=== PATIENT | male | born 1980 | race Caucasian/White ===

== ENCOUNTER 2019-09-16 07:44 | Emergency (ER) | payer OTHER, SELFPAY ==
[2019-09-16 07:50] VITALS: BP 111/86; PULSE 70; RESP 15; TEMP 37; O2SAT 97; BMI 20.9
--- NOTE | 2019-09-16 08:20 | ED.EAR ---
HPI - Ear Problem General Chief complaint: Ear Stated complaint: ears plugged for a week Time Seen by Provider: 09/16/19 08:11 Source: patient Mode of arrival: Ambulatory History of Present Illness HPI Narrative: The patient is a 39-year-old male who states that last week he took a shower and since then it feels as though his ears are plugged. 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 They recommended that he use the brow ox earwax removal which he has used for 1 and half days. He thought it was getting better but then it was then. He states that he continues to hear himself and an alcohol. He denies any headache sore throat nasal congestion difficulty in swallowing. He has had decreased hearing that seems muffled. He has had no vertigo dizziness or ataxia. He denies any chest pain cough shortness of breath or dizziness. He has had no abdominal pain nausea or vomiting. He has had no injury to his ears or drainage from his ears. He denies any recent fever chills or sweats. Related Data Allergies Allergy/AdvReac Type Severity Reaction Status Date / Time Sulfa (Sulfonamide Allergy Unknown MOM Verified 09/16/19 07:49 Antibiotics) REPORTED [SULFA (SULFONAMIDE IT YEARS ANTIBIOTICS)] AGO Review of Systems Review of Systems Narrative: All review of systems were negative except for those mentioned in the history of present illness. Patient History Social History Smoking Status: Current every day smoker Smoking Status: Current every day smoker alcohol intake frequency: a few times a week Substance Use Type: does not use Exam Narrative Exam Narrative: PHYSICAL EXAM: CONSTITUTIONAL: Awake, Alert, Oriented, Coherent, Cooperative in NAD. Does not appear toxic or ill. HEAD: AT/NC EENT: PERRL, FROM of eyes, no discharge, no nystagmus No drainage from the ears, Tympanic membranes are non visualized secondary to the external auditory canals being occluded with brown cerumen. There is no tenderness to palpation over the tragus or pulling on the auricle. There is no pre or posterior auricular lymph nodes noted. No epistaxis or nasal drainage Oral mucosa is moist and pink, posterior pharynx is without erythema or exudate. Tobacco staining on the tongue. NECK: Supple, no obvious JVD, Trachea is midline without stridor, no palpable LN or masses. SPINE: No gross deformity, no palpable tenderness of the cervical, thoracic, lumbar or sacral spine. No CVA tenderness. THORAX: No deformity, retractions, chest wall tenderness, subcutaneous air or crepitice. LUNGS: Clear with symmetrical breath sounds without respiratory distress HEART: Normal heart tones, regular rhythm and rate without murmur. ABDOMEN: Soft, non-tender, normal bowel sounds without guarding, rebound, rigidity or palpable mass or organomegaly. NEURO: Awake, alert, oriented, conversive, cranial nerves II-XII are symmetrical and normal, moves all 4 extremities and is ambulatory Initial Vital Signs Initial Vital Signs: Vital Signs Temperature 98.6 F 09/16/19 07:50 Pulse Rate 70 09/16/19 07:50 Respiratory Rate 15 09/16/19 07:50 Blood Pressure 111/86 09/16/19 07:50 Pulse Oximetry 97 09/16/19 07:50 Course Course Course Narrative: The nurse was asked to irrigate both ears to remove wax with a combination of warm water and hydrogen peroxide. This irrigation was successful and a large amount of cerumen was removed. Re-examination of patient's external auditory canals revealed that the wax had been removed and that there was no injury or excessive irritation and redness. The tympanic membranes were intact without any perforation and pearly white in color. The patient tolerated the procedure well was able to hear better and was feeling much better. He was discharged home to be seen in follow-up as necessary by his primary care physician and ENT. Orders Ordered: Discontinued Medications Hydrogen Peroxide/Benzyl Alcohol (Hydrogen Peroxide) 60 ml TOP NOW ONE Stop: 09/16/19 08:21 Last Admin: 09/16/19 08:49 Dose: 60 ml Documented by: SCANAPO Vital Signs Vital signs: Vital Signs - 8 hr 09/16/19 07:50 Temperature 98.6 F Pulse Rate 70 Respiratory Rate 15 Blood Pressure 111/86 Pulse Oximetry 97 Discharge Plan Departure Patient Disposition: Home Clinical Impression: Impacted cerumen Qualifiers: Laterality: bilateral Qualified Code(s): H61.23 - Impacted cerumen, bilateral Discharge Date/Time: 09/16/19 09:23 Instructions: How to Instill Ear Drops, Cerumen Impaction Activity Restrictions/Additional Instructions: Your tympanic membranes are intact bilaterally and the external auditory canal is clear of wax. Do not continue to put the ED brought earwax removal drops senior year. Follow-up with your primary care physician and or ENT doctor. You can return to the emergency department at any time if any other problems develop.
[2019-09-16] MEDS: HYDROGEN PEROXIDE 473 ML SOLUTION 60 ML TOP (08:49)
== END 2019-09-16 09:23 | disposition home or self-care (01) ==
PROVIDERS: Emergency Provider Emergency Medicine
DX: H61.23 Impacted cerumen, bilateral (principal)
CPT/HCPCS: 69209; 99283; 99284

== ENCOUNTER 2019-11-11 08:05 | Emergency (ER) | payer OTHER, SELFPAY ==
[2019-11-11 08:17] VITALS: BP 146/86; PULSE 78; RESP 18; TEMP 36.7; O2SAT 99
--- NOTE | 2019-11-11 08:37 | PC.NURSE ---
Addendum entered by Triny Lara R.N. 11/11/19 08:38: Addendum entered by Triny Lara R.N. 11/11/19 08:37: Original Note: Patient refused IV start and Lab draw
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
[2019-11-11] MEDS: MAG HYDROX/ALUMINUM/SIMETH SUS 20 ML, LIDOCAINE VISCOUS 2% 15 ML PO (09:05)
[2019-11-11 09:21] VITALS: PULSE 49; RESP 16; O2SAT 96
[2019-11-11 09:38] VITALS: BP 113/64
[2019-11-11 09:39] VITALS: RESP 12; O2SAT 94
[2019-11-11 09:43] VITALS: PULSE 56; RESP 16; O2SAT 94
== END 2019-11-11 09:39 | disposition home or self-care (01) ==
PROVIDERS: Emergency Provider Emergency Medicine
DX: R10.13 Epigastric pain (principal)
CPT/HCPCS: 36415; 99283; 99284